=== PATIENT | male | born 1955 | race Caucasian/White ===

== ENCOUNTER 2022-06-23 08:24 | Outpatient (CLI) | payer MEDICARE, BC, SELFPAY | END 2022-06-23 08:25 | disposition home or self-care (01) | PROVIDERS: PCP Family Medicine; Visit Provider Family Medicine | DX: Z01.818 Encounter for other preprocedural examination (principal); E78.5 Hyperlipidemia, unspecified; I10 Essential (primary) hypertension; E11.9 Type 2 diabetes mellitus without complications; Z12.5 Encounter for screening for malignant neoplasm of prostate | CPT/HCPCS: 80048; 80061; 84153; 84460; 85025 ==

== ENCOUNTER 2022-07-06 09:20 | Outpatient (CLI) | payer MEDICARE, BC, SELFPAY ==
[2022-07-06 14:04] LABS: SARS PCR* Negative SARS-CoV-2 (Negative)
== END 2022-07-06 09:21 | disposition home or self-care (01) ==
LOC: FBOREF 09:21
PROVIDERS: PCP Family Medicine; Visit Provider Orthopaedic Surgery
DX: Z20.822 Contact with and (suspected) exposure to COVID-19 (principal); Z01.812 Encounter for preprocedural laboratory examination
CPT/HCPCS: 87635

== ENCOUNTER 2022-07-07 09:19 | Day surgery (SDC) | payer MEDICARE, BC, SELFPAY ==
[2022-07-04 15:45] VITALS: BP 143/70; PULSE 66; RESP 18; TEMP 36.5; O2SAT 96
[2022-07-05 20:30] VITALS: BP 144/73; PULSE 68; RESP 18; O2SAT 94
[2022-07-07] VITALS (27 sets, daily range): BP systolic 112–162; BP diastolic 70–113; PULSE 47–99; RESP 11–20; TEMP 36.1–36.9; O2SAT 61–100; BMI 35.6
[2022-07-07] MEDS: CELECOXIB 200 MG CAPSULE PO (09:31)
[2022-07-07] MEDS: ACETAMINOPHEN 500 MG TABLET 1000 MG PO ×2 (09:31→18:30)
[2022-07-07] MEDS: OXYCODONE (CR) 10 MG TAB.ER.12H PO (09:31)
[2022-07-07] MEDS: LACTATED RINGERS 1000 ML 1,000 ML 100 ML IV ×2 (09:35→12:37)
[2022-07-07] MEDS: SODIUM CHLORIDE 0.9 % (FLUSH) 10 ML SYRINGE IVF (09:48)
[2022-07-07] MEDS: MIDAZOLAM HCL 1 MG/ML inj IVP (11:35)
[2022-07-07] MEDS: fentaNYL 100 MCG/2 ML inj IVP (11:35)
--- NOTE | 2022-07-07 11:39 | SUR.PREOP ---
TIME?OUT:?1134 PT/Michael COPPOLA RN/Erinn MIX MDA?VERIFICATION?OF?SURGICAL?SITE,?PROCEDURE,?AND?CONSENT OBTAINED?PRIOR?TO?INVASIVE?PROCEDURE.
--- NOTE | 2022-07-07 11:41 | W.ANESCHARGE ---
Anesthesia Charges Start Date/Time Anesthesia Start Date: 07/07/22 Anesthesia Start Time: 11:49 Stop Date/Time Anesthesia Stop Date: 07/07/22 Anesthesia Stop Time: 14:07
--- NOTE | 2022-07-07 11:42 | W.PM.NB ---
Nerve Block Nerve Block Time Seen by Provider: 11:40 Date Seen: 07/07/22 Type of block requested by surgeon for post-operative analgesia: adductor canal Side: left Time out performed: Yes Verification of patient name: Yes Verification of date of : Yes Site marking: site marked Name of person performing procedure: Ty Continuous monitoring Was continuous monitoring of O2 sat, B/P, monitor and storage bin tender, recorded every 15 minutes?: Yes Procedure Checklist: sterile prep, needles and gloves Ultrasound guided. Images saved: Yes Medications given in 5ml increments after negative aspiration: Ropivicaine %: 0.5 mL: 20 Needle gauge: 20 Decadron (mg): 10 Precedex (mcg): 25 Patient tolerated procedure well: Yes Additional comments: Needle noted adjacent to nerve Block Charges Block Charge (with Pro Fee): Femoral Nerve Use of Ultrasound Machine for Block: Yes- US Guidance/pain block
--- NOTE | 2022-07-07 11:43 | P.NB_ITS ---
Nerve Block Nerve Block Time Seen by Provider: 11:40 Date Seen: 07/07/22 Type of block requested by surgeon for post-operative analgesia: geniculars Side: left Time out performed: Yes Verification of patient name: Yes Verification of date of : Yes Site marking: site marked Name of person performing procedure: Ty Continuous monitoring Was continuous monitoring of O2 sat, B/P, elevated guard, recorded every 15 minutes?: Yes Procedure Checklist: sterile prep, needles and gloves Medications given in 5ml increments after negative aspiration: Ropivicaine %: 0.5 mL: 9 Needle gauge: 25 Patient tolerated procedure well: Yes Block Charges Block Charge (with Pro Fee): Genicular Nerve Block Use of Ultrasound Machine for Block: No
[2022-07-07] MEDS: CEFAZOLIN 2 GM INJ IVP (12:08)
[2022-07-07] MEDS: TRANEXAMIC ACID 100 MG/ML INJ 1000 MG IV (12:15)
--- NOTE | 2022-07-07 13:25 | CRLHL7_ITS ---
For Patients: As a result of the Cures Act, medical imaging exams and procedure reports are released immediately into your electronic medical record. You may view this report before your referring provider. If you have questions, please contact your health care provider. Indication: POST OP TKA Technique: Two views left knee Findings/Impression: Hardware from a left total knee arthroplasty is in satisfactory position. Bone alignment is normal. No sign of acute fracture. Postop changes are within normal limits. Dictated by Josse Hunter MD @ 07/08/2022 12:09:42 PM (Electronically Signed)
--- NOTE | 2022-07-07 13:27 | P.ORPRC_ITS ---
Procedure Note Date of procedure: 07/07/22 Procedure: PREOPERATIVE DIAGNOSIS: Left knee osteoarthritis POSTOPERATIVE DIAGNOSIS: Left knee osteoarthritis NAME OF OPERATION: Left total knee arthroplasty SURGEON: Kp Medina MD DIRECTOR OF LABORATORY OPERATIONS: MATTY Rhodes ANESTHESIA: Spinal ESTIMATED BLOOD LOSS: 0 mL COMPLICATIONS: None SPECIMENS: None DRAINS: None PREOPERATIVE ANTIBIOTICS: Ancef 3 grams, antibiotic impregnated cement IMPLANTS: 1. J[employer]J Attune # 9 posterior stabilized femur 2. # 8 fixed-bearing tibia, 14 mm x 50 mm stem 3. # 9 posterior stabilized, 7 mm fixed-bearing polyethylene 4. 41 patella INDICATIONS: The patient is a 66-year-old with a longstanding history of severe, unrelenting left knee pain secondary to end-stage (grade IV) left knee osteoarthritis. Despite appropriate nonoperative management, including activity modification, anti-inflammatories, [id number] pain medication, bracing, physical therapy, and injections they continue to have pain and disability. Operative intervention was offered. The risks, benefits and expected outcomes were discussed in detail. These included but were not limited to: Infection, bleeding, injury to blood vessel or nerve, venous thromboembolism. All questions were answered to their satisfaction. Use of an construction administrative assistant was necessary throughout the case for patient positioning and safety, soft tissue retraction, and closure. PROCEDURE: Spinal anesthesia was administered. The patient was placed supine on the operating table. The construction administrative assistant made sure the patient was positioned appropriately. The lower extremity was prepped and draped in the usual sterile fashion. The limb was exsanguinated with the Esteban bandage. The pneumatic tourniquet was inflated to 300 mmHg. A standard anterior incision was made with the knee in flexion. Subcutaneous dissection was sharply taken through fascial layer #1. Full-thickness medial and lateral flaps were elevated. The construction administrative assistant retracted the soft tissues and protected them throughout the case. A standard medial parapatellar approach was made. The patella was everted. The infrapatellar fat pad was preserved. The menisci and cruciate ligaments were sharply d?brided. Marginal osteophytes were d?brided with the rongeur. The drill was used to penetrate the femoral canal. The canal was aspirated and irrigated with pulse lavage. The intramedullary femoral guide was placed for a 5-degree valgus cut, removing 10 mm off the distal femur. The saw was used to m sujatha the cut. Whitesides line and the trans epicondylar axis were marked. The femoral sizing guide was pinned onto the distal femur. Three degrees of external rotation nicely parallels the transepicondylar axis. Pins were placed for posterior referencing. The four-in-one cutting guide was pinned onto the distal femur. The anterior, posterior, and chamfer cuts were made. The construction administrative assistant protected the collateral ligaments. The box cutting guide was pinned. The box cuts were made. The boxed trial was placed and was an excellent fit. Drill holes for the lugs were made. Attention was then turned to the proximal tibia. The extramedullary tibial guide was placed for a neutral varus/valgus cut with 5 degrees of posterior slope, removing 1 mm based off the medial tibial surface. The construction administrative assistant protected the collateral ligaments and the neurovascular bundle. The saw was used to make the cut. Trial components were placed. The knee was nicely balanced in both flexion and extension. The trial components were removed. The tray was placed in appropriate rotation, parallel to our tibial cutting pins. It was pinned by the construction administrative assistant and the drills were used. The trial stemmed tibial tray was placed and the punch was used. The tray was removed. The punch was used again. We placed a bone plug in the femoral canal. Attention was then turned to the patella. [place] patellar thickness was 24 mm. The lobster claw resection guide was used with the 9.5 mm roman. The saw was used to make the cut. Drill holes were made by the construction administrative assistant. The trial was placed and was an excellent fit. Cancellous surfaces were irrigated with pulse lavage and thoroughly dried by the construction administrative assistant. We cemented the tibial component, then the femoral component. We impacted the 7 mm polyethylene onto the tibial tray. The knee was brought into full extension. We then cemented the patellar component. Excessive cement was removed. The cement was allowed to harden. The knee was taken through a range of motion and was found to be nicely balanced in both flexion and extension. The patella tracks centrally. The construction administrative assistant did a three minute dilute Betadine solution soak. The construction administrative assistant irrigated the wound with 3 liters of normal saline via pulse lavage. The construction administrative assistant reapproximated the extensor mechanism with #1 Vicryl in an interrupted [id number] fashion. The construction administrative assistant then ran the extensor mechanism with a #1 PDO Stratafix. The construction administrative assistant closed the subcutaneous tissues with a 3-0 Stratafix and the skin with a running 3-0 Stratafix in a subcuticular fashion. Glue was used to seal the skin. The construction administrative assistant placed a dry dressing, NICOLE stocking, and Polar Care. Sponge and needle counts were correct x2. The patient tolerated the procedure well. There were no apparent complications. They were carefully transferred to the hospital bed and taken to the postanesthesia care unit in satisfactory condition. PLAN: The patient will be mobilized with physical therapy. Aspirin will be used for DVT prophylaxis. They will be discharged to home once medically appropriate.
--- NOTE | 2022-07-07 14:12 | W.ANESCHARGE ---
Anesthesia Charges Start Date/Time Anesthesia Start Date: 07/07/22 Anesthesia Start Time: 11:49 Stop Date/Time Anesthesia Stop Date: 07/07/22 Anesthesia Stop Time: 14:07
[2022-07-07] MEDS: ONDANSETRON 2 MG/ML inj 4 MG IVP ×2 (14:28→20:01)
[2022-07-07] MEDS: MEPERIDINE 25 MG/ML INJ 12.5 MG IVP (14:55)
[2022-07-07] MEDS: METOCLOPRAMIDE HCL 5 MG/ML INJ 10 MG IVP (15:14)
[2022-07-07] MEDS: OXYCODONE 5 MG TABLET PO (16:56)
[2022-07-07] MEDS: HYDROmorphone 0.5 mg/0.5 ml inj IVP (18:40)
--- NOTE | 2022-07-07 20:30 | PC.NURSE ---
Nursing Care Hours: [id number] Pt this shift up from surgery at 1530, fatigued but oriented. Pale face, c/o nausea. Cool wash cloth provided, decreased stimulation in room. Pt resting comfortably, VSS. pain L leg 7/10 described as stretching, treated per eMAR. Bandage CDI. Cryocuff on, TEDS and SCDs on. Tolerated crackers and applesauce. Up to chair for dinner, tolerated well. C/o nausea while eating when resting with eyes closed and then opening them, pt feels equilibrium is off. Antinausea medication given. Assisted up to bathroom.
[2022-07-07] MEDS: ASPIRIN 81 MG TABLET EC PO (20:38)
[2022-07-07] MEDS: LACTATED RINGERS 1000 ML 1,000 ML 75 ML IV (20:38)
[2022-07-07] MEDS: SENNOSIDES 1 TAB TABLET 2 TAB PO (20:38)
[2022-07-08] MEDS: ACETAMINOPHEN 500 MG TABLET 1000 MG PO ×2 (00:23→05:34)
[2022-07-08] MEDS: OXYCODONE 5 MG TABLET PO ×4 (00:27→10:11)
[2022-07-08 01:54] VITALS: BP 142/61; PULSE 102; RESP 20; TEMP 37.1; O2SAT 91
--- NOTE | 2022-07-08 06:46 | PC.NURSE ---
19-: pleasant and cooperative. SBA with gb and walker, walked halls x 1, tolerated well. Pt c/o nausea at beginning of shift, Zofran given, no c/o nausea since. pain 4-5/10, prn 10mg oxy given, offered relief. VSS. cryo cuff on. dressing CDI.
[2022-07-08 07:00] VITALS: PULSE 77; RESP 16; O2SAT 93
[2022-07-08 07:32] LABS: Basophils Percent Auto 0.1 % (0.0-3.0); Hematocrit 34.6 % (37.0-53.0); Hemoglobin* 11.7 gm/dL (13.5-17.5); Immature Granulocytes Pct Auto 0.2 %; Lymphocytes Percent Auto 14.4 % (20-44); Mean Corpuscular HGB Conc 34 gm/dL (32-36); Mean Corpuscular Hemoglobin 32 pg (26-34); Mean Corpuscular Volume 94 fL (80-100); Monocytes Percent Auto 8.5 % (0.0-11.0); Neutrophils Percent Auto 76.8 % (42.0-72.0); Platelet Count* 254 K/uL (140-440); RDW Coefficient of Variation % 12.9 % (11.5-15.5); White Blood Count* 11.56 K/uL (4.50-11.00)
[2022-07-08 07:38] LABS: Sodium* 132 mmol/L (135-149)
[2022-07-08 07:39] LABS: Potassium* 4.8 mmol/L (3.6-5.1)
[2022-07-08 07:42] LABS: Blood Urea Nitrogen* 20 mg/dL (7-30); Creatinine* 0.9 mg/dL (0.5-1.5); Est. Creatinine Clearance* 86.85; Estimated Glomerular Filt Rate 94 ml/min; INR 1.05 (0.91-1.10); Prothrombin Time 14.4 Seconds
[2022-07-08 07:46] LABS: Slide Review Reflex No
[2022-07-08] MEDS: METFORMIN ER 500 MG 1000 MG PO (08:03)
[2022-07-08] MEDS: glipiZIDE XL 5 MG TAB 10 MG PO (08:04)
[2022-07-08] MEDS: TAMSULOSIN HCL 0.4 MG CAPSULE PO (08:46)
[2022-07-08] MEDS: MULTIVITAMIN/MINERALS 1 TABLET 1 TAB PO (08:46)
[2022-07-08] MEDS: SENNOSIDES 1 TAB TABLET 2 TAB PO (08:46)
[2022-07-08] MEDS: FINASTERIDE 5 MG TABLET PO (08:47)
[2022-07-08] MEDS: lisinopriL 5 MG TABLET PO (08:47)
[2022-07-08] MEDS: ASPIRIN 81 MG TABLET EC PO (08:47)
[2022-07-08] MEDS: PIOGLITAZONE HCL 15 MG TABLET 45 MG PO (08:50)
--- NOTE | 2022-07-08 08:54 | PM.ORPN ---
Subjective Subjective Time Seen by Provider: 07:30 Date Seen: 07/08/22 Principal diagnosis: Status post left knee replacement 07/07/2022 Interval history: Brant is comfortable this morning. He has been moving well. He will discharge to home today. He denies nausea and vomiting. Ortho Exam Narrative Exam Narrative: Alert and oriented x3. Patient is in no acute distress. Converses without labored breathing. Hearing is grossly intact. Ambulates with a walker. Examination of left lower extremity shows the dressing is intact. Mild soft tissue edema. Mild effusion. No erythema or warmth or sign of infection. CMS intact left lower extremity. Bilateral calves are soft and nontender quad strength 5/5 Const Vital Signs, click to edit/add: Vital Signs - 24 hr 07/07/22 09:40 07/07/22 11:32 07/07/22 11:35 Temperature 97.3 F L Pulse Rate 67 75 61 Pulse Rate [Left Pulse Oximeter] Respiratory Rate 16 16 16 Blood Pressure 135/74 162/113 H 152/76 H Blood Pressure [Right Arm] Pulse Oximetry 95 99 94 Oxygen Delivery Method Room Air Nasal Cannula Nasal Cannula Oxygen Flow Rate 2 2 07/07/22 11:40 07/07/22 14:00 07/07/22 14:05 Temperature 97.2 F L Pulse Rate 64 71 63 Pulse Rate [Left Pulse Oximeter] Respiratory Rate 16 16 14 Blood Pressure 135/78 112/77 122/71 Blood Pressure [Right Arm] Pulse Oximetry 92 95 63 L Oxygen Delivery Method Nasal Cannula Nasal Cannula Oxygen Flow Rate 2 2 07/07/22 14:10 07/07/22 14:15 07/07/22 14:20 Temperature Pulse Rate 61 62 54 L Pulse Rate [Left Pulse Oximeter] Respiratory Rate 13 14 12 Blood Pressure 120/74 134/73 135/76 Blood Pressure [Right Arm] Pulse Oximetry 61 L 96 93 Oxygen Delivery Method Oxygen Flow Rate 07/07/22 14:25 07/07/22 14:30 07/07/22 14:35 Temperature 97.0 F L Pulse Rate 53 L 48 L 50 L Pulse Rate [Left Pulse Oximeter] Respiratory Rate 12 14 12 Blood Pressure 142/82 H 140/77 H 141/75 H Blood Pressure [Right Arm] Pulse Oximetry 92 96 100 Oxygen Delivery Method Nasal Cannula Oxygen Flow Rate 2 07/07/22 14:40 07/07/22 14:45 04/18/23 14:50 Temperature Pulse Rate 52 L 47 L 50 L Pulse Rate [Left Pulse Oximeter] Respiratory Rate 11 L 12 12 Blood Pressure 141/76 H 138/73 146/81 H Blood Pressure [Right Arm] Pulse Oximetry 98 96 95 Oxygen Delivery Method Oxygen Flow Rate 07/07/22 14:55 07/07/22 15:00 07/07/22 15:05 Temperature Pulse Rate 48 L 49 L 54 L Pulse Rate [Left Pulse Oximeter] Respiratory Rate 12 11 L 12 Blood Pressure 140/91 H 144/80 H 146/88 H Blood Pressure [Right Arm] Pulse Oximetry 96 97 100 Oxygen Delivery Method Oxygen Flow Rate 07/07/22 15:10 07/07/22 15:15 07/07/22 16:00 Temperature 97.7 F Pulse Rate 66 61 Pulse Rate [Left Pulse Oximeter] 63 Respiratory Rate 12 11 L 18 Blood Pressure 160/89 H 145/76 H Blood Pressure [Right Arm] 146/71 H Pulse Oximetry 100 99 94 Oxygen Delivery Method Nasal Cannula Oxygen Flow Rate 2 07/07/22 18:25 07/07/22 16:15 07/07/22 17:00 Temperature 97.5 F L 97.7 F Pulse Rate 55 L Pulse Rate [Left Pulse Oximeter] 65 71 Respiratory Rate 15 18 18 Blood Pressure Blood Pressure [Right Arm] 144/75 H 138/70 158/107 H Pulse Oximetry 94 Oxygen Delivery Method Nasal Cannula Nasal Cannula Nasal Cannula Oxygen Flow Rate 2.5 2 2 07/07/22 18:00 07/07/22 19:00 07/07/22 23:00 Temperature 97.5 F L 98.5 F Pulse Rate Pulse Rate [Left Pulse Oximeter] 81 99 Respiratory Rate 18 18 Blood Pressure Blood Pressure [Right Arm] 156/89 H 142/70 H Pulse Oximetry 95 91 91 Oxygen Delivery Method Room Air Room Air Oxygen Flow Rate 07/07/22 23:00 07/08/22 01:54 Temperature 98.7 F Pulse Rate Pulse Rate [Left Pulse Oximeter] 102 H Respiratory Rate 20 20 Blood Pressure Blood Pressure [Right Arm] 142/61 H Pulse Oximetry 91 Oxygen Delivery Method Room Air Oxygen Flow Rate Assessment and Plan Assessment and plan (1) Status post left knee replacement: Problem details: 07/07/2022, Dr. Medina Status: Acute Plan Plan for discharge is today to home if they meet discharge criteria. DVT prophylaxis includes aspirin 81 mg twice daily x1 month, Joao stockings x1 month may remove for 1 hr per day, frequent ambulation Remove dressing in 1 week. Observe wound and phone Orthopedics with any questions or concerns Return to clinic in 1 week for a wound check Return to clinic in [address] Medina Minimize narcotic use. Wean off and discontinue soon as possible. Activities as tolerated. No strenuous activity. Outpatient physical therapy as scheduled. Ice and elevate the operative extremity. No restriction on ice.
[2022-07-08 09:29] VITALS: BP 147/69; PULSE 77; RESP 16; TEMP 37.3; O2SAT 93
--- NOTE | 2022-07-08 10:54 | PM.IMCN1 ---
Date of Consult Consult date: 07/08/22 Primary Care Provider: Josse Miller MD Consult Narrative Narrative: Brant Chavarria is a 66 year old male who I was asked to see and follow medical problems as he recovered from his joint replacement. He reports to me as an outpatient his diabetes is well controlled he had a recent A1c of 7.0. His BPH, hypertension hyperlipidemia also been well controlled. Review of Systems Status of ROS: Reports: 10 or more systems reviewed and unremarkable except as noted in History and below [facility] Medical History Aneurysm of internal carotid artery ?I67.1 - Cerebral aneurysm, nonruptured (ICD-10) Anxiety and depression (2012) ?F41.9 - Anxiety disorder, unspecified (ICD-10) ?F32.A - Depression, unspecified (ICD-10) BPH (benign prostatic hyperplasia) ?N40.0 - Benign prostatic hyperplasia without lower urinary tract symptoms (ICD-10) Charcot foot due to diabetes mellitus ?E11.610 - Type 2 diabetes mellitus with diabetic neuropathic arthropathy (ICD-10) COVID-19 virus infection (10/29/20) ?U07.1 - COVID-19 (ICD-10) Diabetic peripheral neuropathy ?E11.42 - Type 2 diabetes mellitus with diabetic polyneuropathy (ICD-10) Exogenous obesity ?E66.09 - Other obesity due to excess calories (ICD-10) Hyperlipidemia ?E78.5 - Hyperlipidemia, unspecified (ICD-10) Hypertension ?I10 - Essential (primary) hypertension (ICD-10) Osteoarthritis of knees, bilateral ?M17.0 - Bilateral primary osteoarthritis of knee (ICD-10) Testosterone deficiency ?E34.9 - Endocrine disorder, unspecified (ICD-10) Type 2 diabetes mellitus (2013) ?E11.9 - Type 2 diabetes mellitus without complications (ICD-10) Umbilical hernia ?K42.9 - Umbilical hernia without obstruction or gangrene (ICD-10) Surgical History (Updated 07/07/22 @ 16:01 by Neelima Abad) History of umbilical hernia repair (1999) ?Z98.890 - Other specified postprocedural states (ICD-10) ?Z87.19 - Personal history of other diseases of the digestive system (ICD-10) Pilonidal cyst with abscess (12/10/03) ?L05.01 - Pilonidal cyst with abscess (ICD-10) Family History Mother Colon cancer Sister Thyroid cancer Breast cancer Father Dementia Social History (Updated 05/16/22 @ 12:39 by Josse Miller MD) Narrative: , no kids, nonsmoker, no EtOH, retired Smoking Status: Never smoker Do you use any of these nicotine containing products: None How often do you have a drink containing alcohol: monthly or less Alcohol type: beer How many standard drinks containing alcohol do you have on a typical day: 1 or 2 How often do you have six or more drinks on one occasion: Never AUDIT-C Alcohol total score: 1 Non-prescribed substance use: denies use Caffeine: Yes (occ pop) Little interest or pleasure in doing things: not at all Feeling down, depressed, or hopeless: not at all service: No Meds Home Medications and Allergies Home Medications Medication Instructions Recorded Confirmed Type aspirin 81 mg chewable tablet 81 mg PO DAILY 05/11/22 07/07/22 History (Aspirin Childrens) multivitamin 1 tab PO DAILY 05/11/22 07/07/22 History finasteride 5 mg tablet 5 mg PO DAILY 07/06/22 07/07/22 History glipizide 10 mg tablet, extended 10 mg PO BIDWM 07/06/22 07/07/22 History release 24 hr insulin glargine 100 unit/mL (3 25 unit subcut .PM 07/06/22 07/07/22 History mL) subcutaneous pen (Basaglar KwikPen U-100 Insulin) lisinopril 5 mg tablet 5 mg PO DAILY 07/06/22 07/07/22 History metformin 500 mg tablet,extended 1,000 mg PO BIDWM 07/06/22 07/07/22 History release 24 hr pioglitazone 45 mg tablet 45 mg PO DAILY 07/06/22 07/07/22 History tamsulosin 0.4 mg capsule 0.4 mg PO DAILY 07/06/22 07/07/22 History Allergies Allergy/AdvReac Type Severity Reaction Status Date / Time No Known Drug Allergies Allergy Verified 07/07/22 09:37 Exam Const: Vital Signs, click to edit/add: Vital Signs - 24 hr 04/18/23 11:32 07/07/22 11:35 07/07/22 11:40 Temperature Pulse Rate 75 61 64 Pulse Rate [Left P ulse Oximeter] Respiratory Rate 16 16 16 Blood Pressure 162/113 H 152/76 H 135/78 Blood Pressure [Ri ght Arm] Pulse Oximetry 99 94 92 Oxygen Delivery Me thod Nasal Cannula Nasal Cannula Nasal Cannula Oxygen Flow Rate 2 2 2 07/07/22 14:00 07/07/22 14:05 07/07/22 14:10 Temperature 97.2 F L Pulse Rate 71 63 61 Pulse Rate [Left P ulse Oximeter] Respiratory Rate 16 14 13 Blood Pressure 112/77 122/71 120/74 Blood Pressure [Ri ght Arm] Pulse Oximetry 95 63 L 61 L Oxygen Delivery Me thod Nasal Cannula Oxygen Flow Rate 2 07/07/22 14:15 07/07/22 14:20 07/07/22 14:25 Temperature Pulse Rate 62 54 L 53 L Pulse Rate [Left P ulse Oximeter] Respiratory Rate 14 12 12 Blood Pressure 134/73 135/76 142/82 H Blood Pressure [Ri ght Arm] Pulse Oximetry 96 93 92 Oxygen Delivery Me thod Oxygen Flow Rate 07/07/22 14:30 07/07/22 14:35 07/07/22 14:40 Temperature 97.0 F L Pulse Rate 48 L 50 L 52 L Pulse Rate [Left P ulse Oximeter] Respiratory Rate 14 12 11 L Blood Pressure 140/77 H 141/75 H 141/76 H Blood Pressure [Ri ght Arm] Pulse Oximetry 96 100 98 Oxygen Delivery Me thod Nasal Cannula Oxygen Flow Rate 2 07/07/22 14:45 07/07/22 14:50 07/07/22 14:55 Temperature Pulse Rate 47 L 50 L 48 L Pulse Rate [Left P ulse Oximeter] Respiratory Rate 12 12 12 Blood Pressure 138/73 146/81 H 140/91 H Blood Pressure [Ri ght Arm] Pulse Oximetry 96 95 96 Oxygen Delivery Me thod Oxygen Flow Rate 07/07/22 15:00 07/07/22 15:05 07/07/22 15:10 Temperature Pulse Rate 49 L 54 L 66 Pulse Rate [Left P ulse Oximeter] Respiratory Rate 11 L 12 12 Blood Pressure 144/80 H 146/88 H 160/89 H Blood Pressure [Ri ght Arm] Pulse Oximetry 97 100 100 Oxygen Delivery Me thod Oxygen Flow Rate 07/07/22 15:15 07/07/22 16:00 07/07/22 18:25 Temperature 97.7 F 97.5 F L Pulse Rate 61 55 L Pulse Rate [Left P ulse Oximeter] 63 Respiratory Rate 11 L 18 15 Blood Pressure 145/76 H Blood Pressure [Ri ght Arm] 146/71 H 144/75 H Pulse Oximetry 99 94 Oxygen Delivery Me thod Nasal Cannula Nasal Cannula Oxygen Flow Rate 2 2.5 07/07/22 16:15 07/07/22 17:00 07/07/22 18:00 Temperature 97.7 F 97.5 F L Pulse Rate Pulse Rate [Left P ulse Oximeter] 65 71 81 Respiratory Rate 18 18 18 Blood Pressure Blood Pressure [Ri ght Arm] 138/70 158/107 H 156/89 H Pulse Oximetry 94 95 Oxygen Delivery Me thod Nasal Cannula Nasal Cannula Room Air Oxygen Flow Rate 2 2 07/07/22 19:00 07/07/22 23:00 07/07/22 23:00 Temperature 98.5 F Pulse Rate Pulse Rate [Left P ulse Oximeter] 99 Respiratory Rate 18 20 Blood Pressure Blood Pressure [Ri ght Arm] 142/70 H Pulse Oximetry 91 91 Oxygen Delivery Me thod Room Air Oxygen Flow Rate 07/08/22 01:54 07/08/22 09:29 07/08/22 07:00 Temperature 98.7 F 99.2 F Pulse Rate Pulse Rate [Left P ulse Oximeter] 102 H 77 Respiratory Rate 20 16 Blood Pressure Blood Pressure [Ri ght Arm] 142/61 H 147/69 H Pulse Oximetry 91 93 93 Oxygen Delivery Me thod Room Air Room Air Oxygen Flow Rate 07/08/22 07:00 Temperature Pulse Rate Pulse Rate [Left P ulse Oximeter] 77 Respiratory Rate 16 Blood Pressure Blood Pressure [Ri ght Arm] Pulse Oximetry Oxygen Delivery Me thod Oxygen Flow Rate Cardiovascular regular rate and rhythm. Lungs clear to auscultation bilaterally. Abdomen positive bowel sounds soft nontender. Skin is warm dry and intact. Extremities have Joao stockings in place there is no calf tenderness and no edema. Labs Labs: Short CBC 07/08/22 Range/Units 07:12 WBC 11.56 H (4.50-11.00) K/uL Hgb 11.7 L (13.5-17.5) gm/dL Hct 34.6 L (37.0-53.0) % Plt Count 254 (140-440) K/uL BMP 07/08/22 07:12 Sodium 132 L Potassium 4.8 BUN 20 Creatinine 0.9 Assessment and Plan Assessment and plan (1) Status post left knee replacement: Problem comment: 07/07/2022, Dr. Medina Status: Acute (2) Type 2 diabetes mellitus: Status: Chronic (3) Hypertension: Status: Chronic Plan Resume home medications. Continue working on excellent diabetic control. Follow-up routinely with Dr. Miller for management of your chronic medical problems.
--- NOTE | 2022-07-08 11:47 | PC.NURSE ---
Discharge: Patient pleasant and cooperative. Patient vitally stable, lungs clear, BS WNL, IV removed, catheter intact. Patient 1 assist, walker, gb. Patient rates left knee pain at most 5/10, 10mg of oxy given x2. Patient tolerating regular diet and urinating. Patient dressing C/D/I. Patient signed belongings sheet and discharge form. Patient left the floor by wheelchair at 1127 to home with spouse.
== END 2022-07-08 11:27 | disposition home or self-care (01) ==
LOC: OR 09:20 → MEDSURG 09:35
PROVIDERS: PCP Family Medicine; Visit Provider Orthopaedic Surgery
PROC: (CPT 27447; principal; 2022-07-07 11:45)
DX: M17.12 Unilateral primary osteoarthritis, left knee (principal); I10 Essential (primary) hypertension; N40.0 Benign prostatic hyperplasia without lower urinary tract symptoms; E78.5 Hyperlipidemia, unspecified; E11.42 Type 2 diabetes mellitus with diabetic polyneuropathy; E66.09 Other obesity due to excess calories; Z68.35 Body mass index [BMI] 35.0-35.9, adult
CPT/HCPCS: 27447; 01402; 36415; 64447; 64454; 73560; 76942; 82565; 82962; 84132; 84295; 84520; 85025; 85610; 97110; 97116; 97161; 97165; A9153; A9270; C1776; J0690; J1100; J1170; J2175; J2250; J2405; J2704; J2765; J2795; J3010; J3490; J7120